=== PATIENT | male | born 1985 | race Caucasian/White ===

== ENCOUNTER → 2017-10-30 | Outpatient (CLI) | payer BC | LOC: GMAJ 12:41 | PROVIDERS: ATTEND Family Medicine | DX: Z00.00 Encounter for general adult medical examination without abnormal findings (principal) ==

== ENCOUNTER 2019-02-08 09:48 | Emergency (ER) | payer BC ==
[2019-02-08] MEDS: ASPIRIN TABLET 325 MG TAB PO ONE (10:12)
[2019-02-08] MEDS: ALUMINUM & MAGNESIUM HYDROXIDE 30 ML UD PO ONE (10:13)
[2019-02-08] MEDS: ALPRAZolam 0.25 MG TAB PO ONE (10:13)
--- NOTE | 2019-02-08 10:49 | RAD ---
EXAM: Chest,2 Views CLINICAL HISTORY: chest pain since 4am COMPARISON STUDY: March 21, 2009 TECHNICAL: Posteroanterior (PA) and lateral views of the chest were performed. FINDINGS: No consolidations, effusions, or edema. The heart size is not enlarged. IMPRESSION: NORMAL CHEST XRAY. Electronically signed by: Fabrice Ge MD 02/08/2019 10:48 AM CDT
--- NOTE | 2019-02-08 14:03 | ED.PDOC ---
History of Present Illness - General Chief Complaint: Cardiac Respiratory Arrest Stated Complaint: Chest pain/SOB Time Seen by Provider: 02/08/19 09:49 Source: patient Exam Limitations: no limitations - History of Present Illness Initial Comments: the patient's a 33-year-old male presenting to the emergency room secondary to chest pain starting around 4 AM this morning. He is reporting that it does give him a little bit of shortness of breath. He does have significant depression and anxiety issues. No previous heart problems. He denies drug use. Positioning and taking a deep breath doesn't seem to make it any better or any worse. He does have tingling in his hands but he is woken up with that multiple times in the past. no palpitations. No history of any significant lung or heart problems. He has been smoking more heavily over the last year.multiple times in the past. Timing/Duration: 4-6 hours Severity: moderate Improving Factors: nothing Worsening Factors: nothing Associated Symptoms: chest pain Allergies/Adverse Reactions: Allergies Iodine Allergy (Verified 02/08/19 10:03) Home Medications: Ambulatory Orders Divalproex Sodium [Depakote] 750 mg PO DAILY 02/08/19 Lurasidone HCl [Latuda] 80 mg PO DAILY 02/08/19 Review of Systems - Review of Systems Constitutional: States: no symptoms reported EENTM: States: no symptoms reported Respiratory: States: short of breath - very mild Cardiology: States: chest pain Gastrointestinal/Abdominal: States: no symptoms reported Genitourinary: States: no symptoms reported Musculoskeletal: States: no symptoms reported Skin: States: no symptoms reported Neurological: States: anxiety Endocrine: States: no symptoms reported All other Systems: No Change from Baseline Past Medical History (General) - Patient Medical History Hx Stroke: No Hx of COPD: No Hx Cardiac Disorders: No Hx Hypertension: No Hx Diabetes: No Hx Cancer: No Surgical History: gastric bypass - Vaccination History Hx Tetanus, Diphtheria Vaccination: Yes Hx Influenza Vaccination: Yes - Social History Hx Tobacco Use: Yes Hx Alcohol Use: Yes Hx Substance Use: No Hx Substance Use Treatment: No Hx Depression: Yes - Bipolar - Female History Patient is a Female of Child Bearing Age (10 -59 yrs old): No Patient : No Family Medical History - Family History Mother Family History: No Known Living Status: Still Living Physical Exam - Physical Exam General Appearance: Alert, Anxious Eye Exam: bilateral normal Ears, Nose, Throat: hearing grossly normal, normal ENT inspection Neck: full range of motion, supple Respiratory: lungs clear, normal breath sounds, no respiratory distress, no accessory muscle use Cardiovascular/Chest: normal peripheral pulses, regular rate, rhythm, no edema Peripheral Pulses: radial,right: 2+, radial,left: 2+, dorsalis pedis,right: 2+, dorsalis pedis,left: 2+ Gastrointestinal/Abdominal: non tender, soft Rectal Exam: deferred Back Exam: no CVA tenderness, no vertebral tenderness Extremity: normal range of motion, non-tender, normal inspection, no pedal edema, normal capillary refill 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, alert, normal mood/affect - he is obviously anxious, oriented x 3 Skin Exam: normal color Comments: Vital Signs - 24 hr 02/08/19 02/08/19 02/08/19 09:57 09:58 11:00 Temperature 97.3 F L Pulse Rate 102 H Pulse Rate [ 102 H 102 H 90 Monitor] Respiratory 22 22 14 Rate Blood Pressure 130/110 132/91 [L brachial] O2 Sat by Pulse 99 94 L Oximetry 02/08/19 12:00 Temperature Pulse Rate Pulse Rate [ 90 Monitor] Respiratory 20 Rate Blood Pressure 125/89 [L brachial] O2 Sat by Pulse 98 Oximetry Progress - Progress Progress: 02/08/19 14:05 the patient is a 33-year-old male presenting to the emergency room with chest pain starting around 4 AM this morning. Symptoms seem to resolve mostly with a dose of Xanax. He does have long-standing depression and anxiety issues. He does need to keep follow-up with his primary care doctor for this. Repeat cardiac enzymes are negative. The patient does have some very mild polycythemia and did have 1 unit of blood phlebotomized. This may be a reaction to his increased smoking over the last year. This does need to be followed with his primary care doctor as well. his may also be contributing to symptoms. I would recommend him taking a baby aspirin daily at least in the short-term. ER warnings are given for any acute worsening. velia hogan [phone] - Results/Orders Results/Orders: EKG shows normal sinus rhythm at 96 bpm. Normal axis. Mild T-wave inversion in lead 3. Normal R-wave progression. No ST segment or T-wave changes otherwise indicative of ischemia. Chest x-ray shows no acute pathology. Laboratory Tests 02/08/19 02/08/19 02/08/19 10:15 10:15 11:20 WBC 9.5 RBC 5.68 Hgb 18.6 H Hct 52.9 H MCV 93.1 MCH 32.7 H MCHC 35.1 RDW 13.2 Plt Count 337 MPV 7.2 L Absolute Neuts (auto) 6.70 Absolute Lymphs (auto) 1.80 Absolute Monos (auto) 0.90 H Absolute Eos (auto) 0.00 Absolute Basos (auto) 0.10 Neutrophils % 70.5 Lymphocytes % 18.9 L Monocytes % 9.2 H Eosinophils % 0.4 L Basophils % 1.0 PT 10.8 INR 1.08 PTT (SP) 25.2 Sodium 135 Potassium 4.7 Chloride 99 L Carbon Dioxide 21 Anion Gap 19.7 H BUN 7 Creatinine 1.01 BUN/Creatinine Ratio 6.9 L Random Glucose 126 H Serum Osmolality 269.6 L Calcium 9.3 Magnesium 1.8 1.7 L Total Bilirubin 1.0 AST 50 H ALT 57 Alkaline Phosphatase 75 Creatine Kinase 225 H* CK-MB (CK-2) 2.5 CK-MB (CK-2) % Not Reportable Troponin I < 0.02 B-Natriuretic Peptide < 5.0 Serum Total Protein 7.6 Albumin 4.1 Globulin 3.5 Albumin/Globulin Ratio 1.2 Therapeutic Phlebotomy 450 cc blood removed 02/08/19 13:10 WBC RBC Hgb Hct MCV MCH MCHC RDW Plt Count MPV Absolute Neuts (auto) Absolute Lymphs (auto) Absolute Monos (auto) Absolute Eos (auto) Absolute Basos (auto) Neutrophils % Lymphocytes % Monocytes % Eosinophils % Basophils % PT INR PTT (SP) Sodium Potassium Chloride Carbon Dioxide Anion Gap BUN Creatinine BUN/Creatinine Ratio Random Glucose Serum Osmolality Calcium Magnesium Total Bilirubin AST ALT Alkaline Phosphatase Creatine Kinase 186 H CK-MB (CK-2) 2.0 CK-MB (CK-2) % Not Reportable Troponin I < 0.02 B-Natriuretic Peptide Serum Total Protein Albumin Globulin Albumin/Globulin Ratio Therapeutic Phlebotomy Departure - Departure Clinical Impression: Anxiety, Polycythemia, Atypical chest pain Disposition: Discharge to Home or Self Care Condition: Fair Departure Forms: ED Discharge - Pt. Copy, Patient Portal Self Enrollment Instructions: Anxiety, Adult (DC) Diet: bland diet Activity: increase activity as tolerated Referrals: Jason Dutton MD [Primary Care Provider] - 1-2 Weeks Home Medications: Ambulatory Orders Divalproex Sodium [Depakote] 750 mg PO DAILY 02/08/19 Lurasidone HCl [Latuda] 80 mg PO DAILY 02/08/19 Additional Instructions: the patient is a 33-year-old male presenting to the emergency room with chest pain starting around 4 AM this morning. Symptoms seem to resolve mostly with a dose of Xanax. He does have long-standing depression and anxiety issues. He does need to keep follow-up with his primary care doctor for this. Repeat cardiac enzymes are negative. The patient does have some very mild polycythemia and did have 1 unit of blood phlebotomized. This may be a reaction to his increased smoking over the last year. This does need to be followed with his primary care doctor as well. his may also be contributing to symptoms. I would recommend him taking a baby aspirin daily at least in the short-term. ER warnings are given for any acute worsening.
[2019-02-08 14:21] VITALS: BP 116/90; TEMP 97; O2SAT 97
== END 2019-02-08 14:21 | disposition home or self-care (01) ==
LOC: ER 09:48
DX: F41.9 Anxiety disorder, unspecified (principal); R07.89 Other chest pain; D75.1 Secondary polycythemia; F31.9 Bipolar disorder, unspecified; F17.200 Nicotine dependence, unspecified, uncomplicated; Z98.84 Bariatric surgery status; Z79.899 Other long term (current) drug therapy; Z91.041 Radiographic dye allergy status

== ENCOUNTER 2020-02-24 17:58 | Emergency (ER) | payer BC ==
--- NOTE | 2020-02-24 18:04 | ED.PDOC ---
History of Present Illness - General Chief Complaint: Syncope/Near Syncope Time Seen by Provider: 02/24/20 18:00 Source: patient, RN notes reviewed, Vital Signs reviewed, EMS notes reviewed Additional Information: 34-year-old male patient, with, history of hypertension the presents to the ER because of 2 episodes of syncope patient had a syncope last night, he went to [facility] evaluate him and patient stated that nothing was told to him. 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 Patient does not have any family history of syncope or cardiac disease at a young age or sudden , patient is a smoker but denies any drug use - History of Present Illness Timing/Prior Episodes: single episode today Precipitating Factors: none Context: sitting Loss of Consciousness: brief (seconds) Current Symptoms: back to normal Allergies/Adverse Reactions: Allergies Iodine Allergy (Verified 02/08/19 10:03) Home Medications: Ambulatory Orders Divalproex Sodium [Depakote] 750 mg PO DAILY 02/08/19 Lurasidone HCl [Latuda] 80 mg PO DAILY 02/08/19 Review of Systems - Review of Systems Constitutional: States: no symptoms reported EENTM: States: no symptoms reported Respiratory: States: no symptoms reported Cardiology: States: no symptoms reported Gastrointestinal/Abdominal: States: no symptoms reported Genitourinary: States: no symptoms reported Musculoskeletal: States: no symptoms reported Skin: States: no symptoms reported Neurological: States: no symptoms reported Endocrine: States: no symptoms reported Hematologic/Lymphatic: States: no symptoms reported Past Medical History (General) - Patient Medical History Hx Stroke: No Hx of COPD: No Hx Cardiac Disorders: No Hx Hypertension: No Hx Diabetes: No Hx Cancer: No - Vaccination History Hx Tetanus, Diphtheria Vaccination: Yes Hx Influenza Vaccination: Yes - Social History Hx Tobacco Use: Yes Hx Alcohol Use: Yes Hx Substance Use: No Hx Substance Use Treatment: No Hx Depression: Yes - Bipolar - Female History Patient : No Physical Exam - Physical Exam General Appearance: Well Developed, Well Groomed, Well Hydrated, Well Nourished Eyes, Ears, Nose, Throat Exam: PERRL/EOMI, normal ENT inspection, TMs normal Neck: non-tender, full range of motion, supple, normal inspection Cardiovascular/Respiratory: regular rate, rhythm, no M/R/G, normal peripheral pulses, no JVD, normal breath sounds, no respiratory distress Gastrointestinal/Abdominal: normal bowel sounds, non tender, soft, no organomegaly, no pulsatile mass Back Exam: normal inspection Extremity: normal range of motion 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, 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 Exam: normal hearing, normal speech, PERRL Coordination/Gait: normal finger to nose, normal gait Motor/Sensory: no motor deficit, no sensory deficit, no pronator drift Skin Exam: normal color Lymphatic: no adenopathy Progress - Progress Progress: 34 year old male that presents to the ER after syncope episode, had an episode yesterday he was seen at [facility], no diagnosis was given, then today it also happened, according to the family member patient had similar episode about 2 years agobut it resolved on its own patient was never seen by a office machines sales representative or neurologist I had a head CT that was negative, EKG remember any evidence of short NM wide QRS prolonged QT D-dimer was negative, and patient does not have any neurological deficits doscahrge Home with instruction to follow-up with a office machines sales representative and neurologist patient cant and avoid any physical activity until can be cleared by the office machines sales representative 02/24/20 19:18 Departure - Departure Clinical Impression: Syncope Qualifiers: Syncope type: unspecified Qualified Code(s): R55 - Syncope and collapse Disposition: Discharge to Home or Self Care Condition: Fair Departure Forms: ED Discharge - Pt. Copy, Patient Portal Self Enrollment, Work Release Form Diet: resume usual diet Referrals: Jason Dutton MD [Primary Care Provider] - 1-2 Weeks JERSON TROTTER MD [Consulting Staff] - 1-2 Weeks SMITH SINGH [Referring] - 1-2 Weeks Home Medications: Ambulatory Orders Divalproex Sodium [Depakote] 750 mg PO DAILY 02/08/19 Lurasidone HCl [Latuda] 80 mg PO DAILY 02/08/19 Additional Instructions: avoid any Activities, do not drive
--- NOTE | 2020-02-24 18:48 | RAD ---
EXAM: XR Chest, 1 View CLINICAL HISTORY: The patient is 34 years old and is Male; syncope TECHNIQUE: Single view of the chest. COMPARISON: February 08, 2019. FINDINGS: Lungs: Unremarkable. No consolidation. Pleural space: Unremarkable. No pneumothorax. Heart: Unremarkable. No cardiomegaly. Mediastinum: Unremarkable. Bones/joints: No acute fracture visualized. Upper abdomen: No free air in the visualized upper abdomen. IMPRESSION: No acute cardiopulmonary process identified. Electronically signed by: Beth Hamilton MD 02/24/2020 6:47 PM [facility]
--- NOTE | 2020-02-24 19:02 | CT ---
CT HEAD WITHOUT IV CONTRAST HISTORY: Syncope. COMPARISON: 07/05/2008 TECHNIQUE: CT scan of the brain was performed without IV contrast. This exam was performed according to our departmental dose-optimization program, which includes automated exposure control, adjustment of the mA and/or kV according to patient size and/or use of iterative reconstruction technique. FINDINGS: The ventricles, cisterns, and sulci are age-appropriate. No evidence of acute infarction, intracranial hemorrhage, extra-axial fluid collection, or midline shift. Retention cyst in the left maxillary sinus. Mastoid air cells are clear. No depressed skull fracture. IMPRESSION: No acute intracranial findings. Electronically signed by: Stiven Bunn MD 02/24/2020 7:00 PM [facility]
[2020-02-24 19:31] VITALS: BP 150/110; TEMP 96.7; O2SAT 96
== END 2020-02-24 19:30 | disposition home or self-care (01) ==
LOC: ER 17:58
DX: R55 Syncope and collapse (principal); I10 Essential (primary) hypertension; F31.9 Bipolar disorder, unspecified; Z87.891 Personal history of nicotine dependence; Z91.041 Radiographic dye allergy status; Z79.899 Other long term (current) drug therapy